=== PATIENT | male | born 1940 | race African-American/Black ===

== ENCOUNTER 2017-02-15 07:43 | Outpatient (CLI) | payer OTHER ==
[2016-02-15 11:26] VITALS: BMI 27.3
== END 2017-02-15 07:44 ==
LOC: AMBL 07:43
PROVIDERS: ATTEND Emergency Medicine
DX: R06.02 Shortness of breath (principal); R53.1 Weakness; R05 Cough; R09.89 Other specified symptoms and signs involving the circulatory and respiratory systems; I49.3 Ventricular premature depolarization; R73.9 Hyperglycemia, unspecified

== ENCOUNTER 2018-08-10 09:57 | Outpatient (CLI) ==
[2016-02-15 11:26] VITALS: BMI 27.3
--- NOTE | 2018-08-10 10:34 | CT ---
EXAM: CT of the head without contrast History: Headache, hemicrania continua Comparison: Soft tissue neck CT 03/19/2014 Technique: Multiplanar CT images through the head were obtained without the administration of IV con trast Findings: Minimal mucosal thickening of the paranasal sinuses. Mastoid air cells are clear in gener al. No acute calvarial abnormalities. 2.2 cm mass either within or just superior to the left parotid gland is more noticeable compared to the prior study. There is left orbital proptosis. Intracranially there is mild diffuse cerebral atrophy. No midline shift and no hydrocephalus. Ather osclerotic vascular calcifications. No acute intracranial hemorrhage or abnormal extraaxial fluid co llections. Periventricular and subcortical white matter hypodensities. Chronic-appearing bilateral basal ganglial lacunar infarctions. Impression: 1. No acute intracranial hemorrhage. 2. Atrophy, chronic small vessel ischemic disease and chronic-appearing lacunar infarctions. 3. Mild paranasal sinus disease. 4. Left orbital proptosis. 5. 2.2 cm mass either within or just superior to the left parotid gland is more noticeable compared to the prior study and could be benign or malignant. Tissue sampling is recommended.
== END 2018-08-10 09:58 | disposition home or self-care (01) ==
LOC: RAD 09:57
PROVIDERS: ATTEND Family Medicine
DX: G44.51 Hemicrania continua (principal)

== ENCOUNTER 2018-11-03 11:17 | Outpatient (CLI) | payer OTHER ==
[2016-02-15 11:26] VITALS: BMI 27.3
--- NOTE | 2018-11-03 13:00 | DI ---
EXAM: Five views of the lumbar spine HISTORY: Low back pain TECHNIQUE: AP lateral, oblique and coned-down lateral views of the lumbar spine were obtained. FINDINGS: There is diffuse facet arthropathy seen throughout the lumbar spine. The findings are mos t severe in the lower lumbar spine. There is anterior subluxation of the five on S1 measuring approx imately 8 mm. No acute acute compression fractures are seen. There is diffuse moderate to severe de generative disc disease and loss of disc height seen throughout the lumbar spine. There is curvature of the lumbar spine to the left centered at the L4 level measuring approximately 13 degrees. IMPRESSION: Mild grade 1 degenerative spondylolisthesis seen at L5-S1. Diffuse facet joint arthropathy seen throughout the lumbar spine. Diffuse moderate to severe degenerative disc disease and lumbar spondylosis.
--- NOTE | 2018-11-03 15:59 | DI ---
EXAM: Pelvis AP view, bilateral hips lateral views HISTORY: Bilateral hip pain. FINDINGS: Bones appear at least mildly demineralized. There is moderate bilateral hip osteoarthriti s which appears relatively symmetric. There is mild to moderate bilateral sacroiliac joint arthropat hy. There is no fracture or dislocation seen. Heavy vascular calcifications are present. Degenerat leonela changes of the lower spine. IMPRESSION: 1. Moderate bilateral hip osteoarthritis. 2. Degenerative changes of the lower spine.
== END 2018-11-03 11:18 | disposition home or self-care (01) ==
LOC: RAD 11:17
PROVIDERS: ATTEND Family Medicine
DX: M25.551 Pain in right hip (principal); M25.552 Pain in left hip; M54.5 Low back pain

== ENCOUNTER 2019-06-12 10:50 | Outpatient (CLI) | payer OTHER ==
[2016-02-15 11:26] VITALS: BMI 27.3
== END 2019-06-12 11:15 | disposition short-term general hospital (02) ==
LOC: AMBL 10:50
PROVIDERS: ATTEND Emergency Medicine
DX: R47.81 Slurred speech (principal); M79.89 Other specified soft tissue disorders; R53.1 Weakness; I49.3 Ventricular premature depolarization; R00.0 Tachycardia, unspecified; M19.90 Unspecified osteoarthritis, unspecified site; R52 Pain, unspecified; R23.8 Other skin changes; M35.00 Sjogren syndrome, unspecified; E11.9 Type 2 diabetes mellitus without complications; I10 Essential (primary) hypertension; E78.5 Hyperlipidemia, unspecified; Z86.73 Personal history of transient ischemic attack (TIA), and cerebral infarction without residual deficits